=== PATIENT | male | born 1965 | race Caucasian/White ===

== ENCOUNTER 2018-11-22 14:36 | Inpatient (IN) ==
[2018-11-22 15:16] LABS: Basophils # 0.1 10*3/uL (0.0-0.2); Basophils % 0.7 % (0.0-0.8); Eosinophils # 0.4 10*3/uL (0.0-0.87); Eosinophils % 3.3 % (0.00-10.9); Hematocrit 45.4 VOL% (42.0-52.0); Hemoglobin 14.8 GM/DL (14.0-18.0); Immature Granulocytes % 0.4 %; Immature Granulocytes Absolute 0.05 #; Lymphocytes # 3.8 10*3/uL (1.4-4.0); Lymphocytes % 30.2 % (21.2-54.2); Mean Corpuscular HGB Conc 32.6 GM/DL (32-36); Mean Corpuscular Volume 93.4 FL (87-102); Mean Platelet Volume 11.6 FL (9.6-12.0); Monocytes % 10.4 % (1.7-12.7); Platelet Count 208 T/CUMM (130-400); Red Blood Count 4.86 MC/CUMM (3.8-5.5); Red Cell Distribution Width 12.9 % (9.3-17.3); White Blood Count 12.5 T/CUMM (4-12)
[2018-11-22 15:41] LABS: Albumin 3.6 G/DL (3.4-5.0); Bilirubin,Total 0.6 MG/DL (0.2-1.0); Calcium 8.9 MG/DL (8.5-10.1); Osmolality,Calculated 281.3 MOS/KG (273-304); Total Protein 6.6 G/DL (6.4-8.3)
[2018-11-22] MEDS ORDERED: ONDANSETRON 4 MG/2 ML VIAL IV STA (16:17)
[2018-11-22] MEDS ORDERED: ASPIRIN CHEW 81 MG TABLET PO STA (16:17)
[2018-11-22] MEDS ORDERED: NITROGLYCERIN 2% OINT 1 INCH/GM PACK TOP STA (16:17)
[2018-11-22] MEDS ORDERED: ENOXAPARIN 80 MG/0.8 ML SYRINGE SUBCUT STA (16:17)
[2018-11-22] MEDS ORDERED: MORPHINE 4 MG/1 ML VIAL IV STA (16:17)
[2018-11-22] MEDS ORDERED: BISACODYL 5 MG TABLET PO PRN (16:54)
[2018-11-22] MEDS ORDERED: MAGNESIUM SULF RIDER 4 GM in PREMIX 1 EACH IV PRN (16:54)
[2018-11-22] MEDS ORDERED: MAGNESIUM SULF RIDER 2 GM in PREMIX 1 EACH IV PRN (16:54)
[2018-11-22] MEDS ORDERED: ZALEPLON 5 MG CAPSULE PO PRN (16:54)
[2018-11-22] MEDS ORDERED: diphenhydrAMINE CAP 25 MG CAPSULE PO PRN (16:54)
[2018-11-22] MEDS ORDERED: DOCUSATE SODIUM 100 MG CAPSULE PO PRN (16:54)
[2018-11-22] MEDS ORDERED: POTASSIUM CHLORIDE 20 MEQ TABLET PO PRN (16:54)
[2018-11-22] MEDS ORDERED: NICOTINE 21 MG/24 HR PATCH TRANSDERM PRN (16:54)
[2018-11-22] MEDS ORDERED: MORPHINE 4 MG/1 ML VIAL IV PRN (16:54)
[2018-11-22] MEDS ORDERED: ONDANSETRON 4 MG/2 ML VIAL IV PRN (16:54)
[2018-11-22] MEDS ORDERED: guaiFENesin/DM ER 600-30 MG TABLET PO PRN (16:54)
[2018-11-22] MEDS ORDERED: ACETAMINOPHEN 325 MG TABLET PO PRN (16:54)
[2018-11-22] MEDS ORDERED: LISINOPRIL 10 MG TABLET ONE (18:26)
[2018-11-22] MEDS: KETOROLAC 30 MG/1 ML VIAL IV SCH (18:33)
[2018-11-22] MEDS: PANTOPRAZOLE 40 MG TABLET PO SCH (18:33)
[2018-11-22] MEDS: LISINOPRIL 5 MG TABLET PO SCH (18:33)
[2018-11-22 20:04] LABS: CKMB % 8.3 %
[2018-11-22 20:10] LABS: Troponin I 14.1 NG/ML (0.00-0.045)
[2018-11-22 22:12] LABS: CKMB % 8.1 %
[2018-11-22] MEDS: CARVEDILOL 3.125 MG TABLET PO SCH (22:14)
[2018-11-22] MEDS: GABAPENTIN 100 MG CAPSULE PO SCH (22:14)
[2018-11-22] MEDS: ROSUVASTATIN 20 MG TABLET PO SCH (22:14)
[2018-11-22 22:15] LABS: Troponin I 14.2 NG/ML (0.00-0.045)
[2018-11-22] MEDS: NITROGLYCERIN 2% OINT 1 INCH/GM PACK TOP SCH (22:15)
[2018-11-23] MEDS: KETOROLAC 30 MG/1 ML VIAL IV SCH (00:57)
[2018-11-23 05:26] LABS: Basophils # 0.1 10*3/uL (0.0-0.2); Basophils % 0.7 % (0.0-0.8); Eosinophils # 0.4 10*3/uL (0.0-0.87); Eosinophils % 3.3 % (0.00-10.9); Hematocrit 41.6 VOL% (42.0-52.0); Hemoglobin 13.8 GM/DL (14.0-18.0); INR 0.9; Immature Granulocytes % 0.4 %; Immature Granulocytes Absolute 0.05 #; Lymphocytes # 3.3 10*3/uL (1.4-4.0); Lymphocytes % 29.1 % (21.2-54.2); Mean Corpuscular HGB Conc 33.2 GM/DL (32-36); Mean Corpuscular Volume 93.5 FL (87-102); Mean Platelet Volume 12.3 FL (9.6-12.0); Neutrophils % 54.5 % (38.7-73.9); PT Patient Result 10.1 SECS; Platelet Count 179 T/CUMM (130-400); Red Blood Count 4.45 MC/CUMM (3.8-5.5); Red Cell Distribution Width 12.9 % (9.3-17.3); White Blood Count 11.2 T/CUMM (4-12)
[2018-11-23] MEDS: NITROGLYCERIN 2% OINT 1 INCH/GM PACK TOP SCH ×4 (05:40→22:54)
[2018-11-23 06:03] LABS: Calcium 8.7 MG/DL (8.5-10.1); Osmolality,Calculated 286.1 MOS/KG (273-304); Risk Ratio 5.48; VLDL CHOLESTEROL 22.6 MG/DL
[2018-11-23] MEDS: ENOXAPARIN 80 MG/0.8 ML SYRINGE SUBCUT SCH ×2 (06:05→16:14)
[2018-11-23] MEDS: SODIUM CHLORIDE 0.9% 1,000 ML IV SCH ×2 (08:45→18:12)
[2018-11-23] MEDS ORDERED: DIAZEPAM 5 MG TABLET ONE (08:47)
[2018-11-23] MEDS: GABAPENTIN 100 MG CAPSULE PO SCH ×3 (10:20→20:18)
[2018-11-23] MEDS ORDERED: LIDOCAINE 1% 20 ML VIAL ONE (11:56)
[2018-11-23] MEDS: CARVEDILOL 3.125 MG TABLET PO SCH ×2 (11:58→20:18)
[2018-11-23] MEDS: ASPIRIN EC 81 MG TABLET PO SCH (11:58)
[2018-11-23] MEDS: LISINOPRIL 5 MG TABLET PO SCH (11:58)
[2018-11-23] MEDS: PANTOPRAZOLE 40 MG TABLET PO SCH (11:59)
[2018-11-23] MEDS ORDERED: diphenhydrAMINE CAP 25 MG CAPSULE PO ONE (12:00)
[2018-11-23] MEDS ORDERED: DIAZEPAM 5 MG TABLET PO ONE (12:00)
[2018-11-23] MEDS ORDERED: NITROGLYCERIN DRIP 50 MG/250 ML BOTTLE IV ONE (12:56)
[2018-11-23] MEDS ORDERED: VERAPAMIL 5 MG/2 ML VIAL ONE (12:56)
[2018-11-23] MEDS ORDERED: fentaNYL 100 MCG/2 ML VIAL ONE (13:03)
[2018-11-23] MEDS ORDERED: MIDAZOLAM 2 MG/2 ML VIAL ONE ×2 (13:03→13:34)
[2018-11-23] MEDS ORDERED: KETOROLAC 30 MG/1 ML VIAL IV ONE (15:02)
[2018-11-23] MEDS: ROSUVASTATIN 20 MG TABLET PO SCH (20:18)
[2018-11-24] MEDS: NITROGLYCERIN 2% OINT 1 INCH/GM PACK TOP SCH ×4 (03:59→21:10)
[2018-11-24] MEDS: ENOXAPARIN 80 MG/0.8 ML SYRINGE SUBCUT SCH (03:59)
[2018-11-24] MEDS: SODIUM CHLORIDE 0.9% 1,000 ML IV SCH ×2 (03:59→18:50)
[2018-11-24 05:39] LABS: Calcium 8.2 MG/DL (8.5-10.1)
[2018-11-24 05:46] LABS: Basophils # 0.1 10*3/uL (0.0-0.2); Basophils % 0.6 % (0.0-0.8); Eosinophils # 0.3 10*3/uL (0.0-0.87); Eosinophils % 3.1 % (0.00-10.9); Hematocrit 37.3 VOL% (42.0-52.0); Hemoglobin 12.3 GM/DL (14.0-18.0); Immature Granulocytes % 0.4 %; Immature Granulocytes Absolute 0.04 #; Lymphocytes # 2.6 10*3/uL (1.4-4.0); Lymphocytes % 27.9 % (21.2-54.2); Mean Corpuscular Volume 94.9 FL (87-102); Mean Platelet Volume 12.5 FL (9.6-12.0); Monocytes % 9.9 % (1.7-12.7); Neutrophils % 58.1 % (38.7-73.9); Platelet Count 164 T/CUMM (130-400); Red Blood Count 3.93 MC/CUMM (3.8-5.5); Red Cell Distribution Width 12.6 % (9.3-17.3); White Blood Count 9.4 T/CUMM (4-12)
[2018-11-24] MEDS ORDERED: GLUCAGON 1 MG VIAL IM PRN (06:19)
[2018-11-24] MEDS ORDERED: CEFUROXIME INJ 1,500 MG in SYRINGE 1 EACH IV ONE (06:19)
[2018-11-24] MEDS ORDERED: DEXTROSE 50% 25 GM/50 ML SYRINGE IV PRN (06:19)
[2018-11-24 06:42] LABS: CKMB % 0.9 %
[2018-11-24 06:46] LABS: Troponin I 10.5 NG/ML (0.00-0.045)
[2018-11-24] MEDS: PANTOPRAZOLE 40 MG TABLET PO SCH (09:07)
[2018-11-24] MEDS: CARVEDILOL 3.125 MG TABLET PO SCH ×2 (09:08→21:10)
[2018-11-24] MEDS: GABAPENTIN 100 MG CAPSULE PO SCH ×3 (09:09→21:10)
[2018-11-24] MEDS: LISINOPRIL 5 MG TABLET PO SCH (09:09)
[2018-11-24] MEDS: ASPIRIN EC 81 MG TABLET PO SCH (09:09)
[2018-11-24] MEDS: CHLORHEXIDINE 0.12% ORAL RINSE 60 ML BOTTLE SWISH/SPIT SCH ×2 (09:12→21:10)
[2018-11-24] MEDS ORDERED: HYDROCORTISONE 2.5% CREAM 30 GM TUBE TOP PRN (09:59)
[2018-11-24 12:13] LABS: ABG Base Excess 1.3 MMOL/L (-2.5-2.5); ABG HCO3 25.5 MMOL/L (20-26); ABG Oxygen Saturation 96.5 % (95-100); ABG PCO2 37.4 MM HG (35-48); ABG PH 7.437 (7.35-7.45); ABG PO2 81.7 MM HG (80-95)
[2018-11-24] MEDS: CLORAZEPATE 3.75 MG TABLET PO PRN ×2 (13:10→19:45)
[2018-11-24] MEDS: CHLORHEXIDINE 4% SOLN 118 ML BOTTLE TOP SCH ×2 (17:34→21:10)
[2018-11-24] MEDS: ROSUVASTATIN 20 MG TABLET PO SCH (21:10)
[2018-11-25] MEDS: NITROGLYCERIN 2% OINT 1 INCH/GM PACK TOP SCH ×2 (04:27→10:14)
[2018-11-25] MEDS ORDERED: PAPAVERINE 60 MG/2 ML VIAL ONE (04:47)
[2018-11-25] MEDS ORDERED: VANCOMYCIN 1,000 MG VIAL ONE (04:47)
[2018-11-25] MEDS: CHLORHEXIDINE 4% SOLN 118 ML BOTTLE TOP SCH (04:53)
[2018-11-25] MEDS ORDERED: DIAZEPAM 5 MG TABLET PO ONE (05:00)
[2018-11-25] MEDS ORDERED: CEFUROXIME 1,500 MG VIAL ONE (05:28)
[2018-11-25] MEDS: SODIUM CHLORIDE 0.9% 1,000 ML IV SCH ×3 (05:30→10:14)
[2018-11-25] MEDS: PANTOPRAZOLE 40 MG TABLET PO SCH ×2 (05:54→08:05)
[2018-11-25] MEDS: LISINOPRIL 5 MG TABLET PO SCH ×2 (05:54→08:05)
[2018-11-25] MEDS: CARVEDILOL 3.125 MG TABLET PO SCH ×2 (05:55→08:05)
[2018-11-25] MEDS ORDERED: SUFentanil 250 MCG/5 ML AMP ONE (05:57)
[2018-11-25] MEDS ORDERED: MIDAZOLAM 10 MG/2 ML VIAL ONE (05:57)
[2018-11-25 05:59] LABS: Basophils # 0.1 10*3/uL (0.0-0.2); Basophils % 0.7 % (0.0-0.8); Eosinophils # 0.5 10*3/uL (0.0-0.87); Eosinophils % 4.1 % (0.00-10.9); Hematocrit 40.1 VOL% (42.0-52.0); Hemoglobin 13.5 GM/DL (14.0-18.0); Immature Granulocytes % 0.6 %; Immature Granulocytes Absolute 0.07 #; Lymphocytes # 2.8 10*3/uL (1.4-4.0); Lymphocytes % 25.5 % (21.2-54.2); Mean Corpuscular HGB Conc 33.7 GM/DL (32-36); Mean Platelet Volume 12.7 FL (9.6-12.0); Monocytes % 10.2 % (1.7-12.7); Neutrophils % 58.9 % (38.7-73.9); Platelet Count 189 T/CUMM (130-400); Red Blood Count 4.31 MC/CUMM (3.8-5.5); Red Cell Distribution Width 12.5 % (9.3-17.3)
[2018-11-25] MEDS ORDERED: FAMOTIDINE 20 MG TABLET PO ONE (06:00)
[2018-11-25 06:15] LABS: Calcium 9.2 MG/DL (8.5-10.1); Osmolality,Calculated 283.1 MOS/KG (273-304)
[2018-11-25] MEDS ORDERED: ALBUMIN 5% 12.5 GM/250 ML VIAL IV ONE ×3 (07:03→15:19)
[2018-11-25] MEDS ORDERED: PHENYLEPHRINE DRIP 40 MG/250 ML PREMIX IV ONE (07:04)
[2018-11-25] MEDS ORDERED: POTASSIUM CHLORIDE RIDER 100 ML IV ONE (07:06)
[2018-11-25 07:46] LABS: ABG Base Excess 1.4 MMOL/L (-2.5-2.5); ABG HCO3 25.7 MMOL/L (20-26); ABG Oxygen Saturation 99.9 % (95-100); ABG PCO2 34.2 MM HG (35-48); ABG PH 7.466 (7.35-7.45); ABG TCO2 21.8 MMOL/L (23-27); Glucose Heart Surgery 106 MG/DL (74-106); Hematocrit Heart Surgery 36.5 PERCENT (42-52); Hemoglobin Heart Surgery 11.9 G/DL (14.0-18.0); Ionized Calcium Arterial 1.13 MMOL/L (1.21-1.46); PCO2 Patient Temp Arterial 34.2 MMHG; PH Patient Temp Arterial 7.466; Patient Temperature 37 CELCIUS; Potassium Heart/CVR 3.4 MMOL/L (3.5-5.1); Sodium Heart/CVR 140 MMOL/L (135-145)
[2018-11-25] MEDS: CHLORHEXIDINE 0.12% ORAL RINSE 60 ML BOTTLE SWISH/SPIT SCH (08:05)
[2018-11-25] MEDS: GABAPENTIN 100 MG CAPSULE PO SCH (08:05)
[2018-11-25] MEDS: ASPIRIN EC 81 MG TABLET PO SCH (08:05)
[2018-11-25 08:09] LABS: Apearance,Urine CLEAR (Clear); Bilirubin,Urine Negative (Negative); Blood, Urine Moderate mg/dL (Negative); Glucose,Urine (UA) Negative (Negative); Ketones,Urine Negative (Negative); Mucus,Urine Occasional /LPF (Occasional); Nitrite,Urine Negative (Negative); Protein,Urine Negative; RBC,Urine 1 /HPF (0-4); Urine Color Yellow (Yellow); Urine Specific Gravity 1.018 (1.001-1.035); Urine Urobilinogen < 2.0 EU/DL (0.2-1.0); WBC,Urine 1 /HPF (0-6)
[2018-11-25 09:20] LABS: Hemoglobin Heart Surgery 9.1 G/DL (14.0-18.0); PCO2 Patient Temp Venous 29.6 MM HG; PH Patient Temp Venous 7.534; Potassium Heart/CVR 4.7 MMOL/L (3.5-5.1); VBG Base Excess 1.8 MEQ/L (0-4); VBG Oxygen Saturation 87.9 %; VBG PCO2 33.7 MMHG (41-51); VBG PH 7.488; VBG PO2 54.3 MMHG (17-40)
[2018-11-25] MEDS ORDERED: VECURONIUM 10 MG VIAL IV ONE (09:24)
[2018-11-25] MEDS ORDERED: MINERAL OIL/PETROLATUM OPH OINT 3.5 GM TUBE ONE (09:24)
[2018-11-25] MEDS ORDERED: EPINEPHrine 1 MG/ML VIAL ONE (09:24)
[2018-11-25] MEDS ORDERED: PHENYLEPHRINE 10 MG/1 ML VIAL IV ONE (09:24)
[2018-11-25] MEDS ORDERED: ETOMIDATE 40 MG/20 ML VIAL IV ONE (09:24)
[2018-11-25] MEDS ORDERED: CALCIUM CHLORIDE 1,000 MG/10 ML VIAL IV ONE (09:24)
[2018-11-25] MEDS ORDERED: ePHEDrine 50 MG/ML AMP ONE (09:24)
[2018-11-25] MEDS ORDERED: LACTATED RINGERS 1,000 ML IV ONE (09:25)
[2018-11-25] MEDS ORDERED: SODIUM CHLORIDE 0.9% 1,000 ML IV ONE (09:25)
[2018-11-25] MEDS ORDERED: SODIUM CHLORIDE 0.9% 250 ML IV ONE (09:25)
[2018-11-25] MEDS ORDERED: SODIUM CHLORIDE 0.9% 100 ML IV ONE (09:25)
[2018-11-25] MEDS ORDERED: NITROGLYCERIN DRIP 50 MG/250 ML BOTTLE IV ONE (09:25)
[2018-11-25 09:50] LABS: Hematocrit Heart Surgery 28.4 PERCENT (42-52); Hemoglobin Heart Surgery 9.2 G/DL (14.0-18.0); PCO2 Patient Temp Venous 27.6 MM HG; PH Patient Temp Venous 7.539; PO2 Patient Temp Venous 37.4 MM HG; Potassium Heart/CVR 4.4 MMOL/L (3.5-5.1); VBG Base Excess 1.7 MEQ/L (0-4); VBG HCO3 25.7 MEQ/L (24-28); VBG Oxygen Saturation 87.5 %; VBG PCO2 33.5 MMHG (41-51); VBG PH 7.479; VBG PO2 49.2 MMHG (17-40)
[2018-11-25] MEDS ORDERED: HEPARIN/NACL 0.9% 2 UNITS/ML 500 ML IV ONE (09:51)
[2018-11-25] MEDS ORDERED: DEXTROSE 5% KCL 20 MEQ 20 MEQ/1,000 ML BAG IV ONE (10:34)
[2018-11-25] MEDS ORDERED: MANNITOL 100 GM/500 ML BAG IV ONE (10:34)
[2018-11-25] MEDS ORDERED: SODIUM BICARBONATE 50 MEQ/50 ML VIAL IV ONE (10:35)
[2018-11-25] MEDS ORDERED: MAGNESIUM SULFATE 5 GM/10 ML VIAL IV ONE (10:35)
[2018-11-25] MEDS ORDERED: FUROSEMIDE 20 MG/2 ML VIAL ONE (10:35)
[2018-11-25] MEDS ORDERED: methylPREDNISolone SOD SUC 1,000 MG/8 ML VIAL ONE (10:35)
[2018-11-25] MEDS ORDERED: PROTAMINE SULFATE 250 MG/25 ML VIAL IV ONE (10:35)
[2018-11-25] MEDS ORDERED: ALBUMIN 25% 25 GM/100 ML VIAL IV ONE (10:35)
[2018-11-25] MEDS ORDERED: HEPARIN 10,000 UNIT/10 ML VIAL ONE (10:35)
[2018-11-25] MEDS ORDERED: PROTAMINE SULFATE 50 MG/5 ML VIAL IV ONE ×3 (10:36→11:47)
[2018-11-25 10:37] LABS: ABG Base Excess -0.1 MMOL/L (-2.5-2.5); ABG HCO3 24.4 MMOL/L (20-26); ABG Oxygen Saturation 99.9 % (95-100); ABG PCO2 36.6 MM HG (35-48); ABG PH 7.425 (7.35-7.45); ABG TCO2 21.7 MMOL/L (23-27); Glucose Heart Surgery 211 MG/DL (74-106); Hematocrit Heart Surgery 32.2 PERCENT (42-52); Hemoglobin Heart Surgery 10.4 G/DL (14.0-18.0); Ionized Calcium Arterial 1.27 MMOL/L (1.21-1.46); PCO2 Patient Temp Arterial 36.6 MMHG; PH Patient Temp Arterial 7.425; Patient Temperature 37 CELCIUS; Potassium Heart/CVR 3.7 MMOL/L (3.5-5.1); Sodium Heart/CVR 134 MMOL/L (135-145)
[2018-11-25] MEDS ORDERED: MORPHINE 10 MG/1 ML VIAL IV PRN (11:36)
[2018-11-25] MEDS ORDERED: DEXTROSE 50% 25 GM/50 ML SYRINGE IV PRN ×2 (11:36)
[2018-11-25] MEDS ORDERED: NITROPRUSSIDE 100 MG in DEXTROSE 5% 250 ML IV PRN (11:36)
[2018-11-25] MEDS ORDERED: MAGNESIUM SULF RIDER 2 GM in PREMIX 1 EACH IV PRN (11:36)
[2018-11-25] MEDS ORDERED: LACTATED RINGERS 250 ML IV PRN (11:36)
[2018-11-25] MEDS ORDERED: MAGNESIUM SULF RIDER 4 GM in PREMIX 1 EACH IV PRN (11:36)
[2018-11-25] MEDS ORDERED: MIDAZOLAM 10 MG/2 ML VIAL IV PRN (11:36)
[2018-11-25] MEDS ORDERED: INSULIN REGULAR 100 UNIT/ML IV PRN (11:36)
[2018-11-25] MEDS ORDERED: CALCIUM CHLORIDE 1,000 MG/10 ML SYRINGE IV PRN (11:36)
[2018-11-25] MEDS ORDERED: POTASSIUM CHLORIDE RIDER 10 MEQ in PREMIX 1 EACH IV PRN (11:36)
[2018-11-25] MEDS ORDERED: ONDANSETRON 4 MG/2 ML VIAL IV PRN (11:36)
[2018-11-25] MEDS ORDERED: MIDAZOLAM 2 MG/2 ML VIAL IV PRN (11:36)
[2018-11-25] MEDS ORDERED: PHENYLEPHRINE DRIP 40 MG/250 ML PREMIX IV PRN (11:36)
[2018-11-25] MEDS ORDERED: VECURONIUM 10 MG VIAL IV PRN ×2 (11:36)
[2018-11-25] MEDS ORDERED: ACETAMINOPHEN 650 MG SUPP RECTAL PRN (11:36)
[2018-11-25] MEDS ORDERED: INSULIN REGULAR 100 UNIT/ML IV ONE (11:36)
[2018-11-25] MEDS ORDERED: SODIUM CHLORIDE 0.45% 1,000 ML IV SCH ×2 (11:36)
[2018-11-25] MEDS ORDERED: INSULIN REGULAR DRIP 100 ML IV SCH (11:36)
[2018-11-25] MEDS ORDERED: MORPHINE 4 MG/1 ML VIAL IV PRN (11:36)
[2018-11-25 11:48] LABS: ABG Base Excess 1.6 MMOL/L (-2.5-2.5); ABG HCO3 25.8 MMOL/L (20-26); ABG Oxygen Saturation 96.5 % (95-100); ABG PCO2 37.8 MM HG (35-48); ABG PO2 82.2 MM HG (80-95); ABG TCO2 22.5 MMOL/L (23-27); Glucose Heart Surgery 200 MG/DL (74-106); Hemoglobin Heart Surgery 12.3 G/DL (14.0-18.0); Potassium Heart/CVR 3.1 MMOL/L (3.5-5.1)
[2018-11-25 11:52] LABS: Basophils % 0.3 % (0.0-0.8); Eosinophils # 0.2 10*3/uL (0.0-0.87); Eosinophils % 1.2 % (0.00-10.9); Hematocrit 35.7 VOL% (42.0-52.0); Immature Granulocytes % 1.5 %; Lymphocytes # 0.9 10*3/uL (1.4-4.0); Lymphocytes % 6.8 % (21.2-54.2); Mean Corpuscular HGB Conc 33.6 GM/DL (32-36); Mean Corpuscular Volume 92.7 FL (87-102); Mean Platelet Volume 12.3 FL (9.6-12.0); Neutrophils % 85.2 % (38.7-73.9); Platelet Count 147 T/CUMM (130-400); Red Blood Count 3.85 MC/CUMM (3.8-5.5); Red Cell Distribution Width 12.4 % (9.3-17.3); White Blood Count 13.8 T/CUMM (4-12)
[2018-11-25] MEDS: POTASSIUM CHLORIDE RIDER 20 MEQ in PREMIX 1 EACH IV PRN ×3 (11:58→14:28)
[2018-11-25 11:59] LABS: PT Patient Result 10.7 SECS
[2018-11-25] MEDS: LACTATED RINGERS 1,000 ML IV PRN ×3 (12:05→16:41)
[2018-11-25] MEDS: KETOROLAC 30 MG/1 ML VIAL IV SCH ×3 (12:11→23:52)
[2018-11-25] MEDS: ALBUMIN 5% 12.5 GM in PREMIX 1 EACH IV PRN ×3 (12:16→15:18)
[2018-11-25 12:28] LABS: Albumin 2.9 G/DL (3.4-5.0); Bilirubin,Total 1.4 MG/DL (0.2-1.0); CKMB % 2.8 %; Calcium 8.9 MG/DL (8.5-10.1); Osmolality,Calculated 288.1 MOS/KG (273-304); Total Protein 5.9 G/DL (6.4-8.3)
[2018-11-25 12:29] LABS: Troponin I 12.9 NG/ML (0.00-0.045)
[2018-11-25 12:58] LABS: ABG Base Excess 1.5 MMOL/L (-2.5-2.5); ABG HCO3 25.7 MMOL/L (20-26); ABG Oxygen Saturation 97.4 % (95-100); ABG PCO2 38.9 MM HG (35-48); ABG PH 7.429 (7.35-7.45); ABG PO2 96.6 MM HG (80-95); ABG TCO2 22.8 MMOL/L (23-27); Glucose Heart Surgery 198 MG/DL (74-106); Hematocrit Heart Surgery 36.5 PERCENT (42-52); Hemoglobin Heart Surgery 11.8 G/DL (14.0-18.0); Potassium Heart/CVR 4.1 MMOL/L (3.5-5.1)
[2018-11-25 14:13] LABS: ABG Base Excess 1.3 MMOL/L (-2.5-2.5); ABG HCO3 25.5 MMOL/L (20-26); ABG Oxygen Saturation 95.6 % (95-100); ABG PCO2 40.6 MM HG (35-48); ABG PH 7.413 (7.35-7.45); ABG PO2 78.4 MM HG (80-95); ABG TCO2 23.2 MMOL/L (23-27); Glucose Heart Surgery 186 MG/DL (74-106); Hematocrit Heart Surgery 35.1 PERCENT (42-52); Hemoglobin Heart Surgery 11.4 G/DL (14.0-18.0); Potassium Heart/CVR 3.8 MMOL/L (3.5-5.1)
[2018-11-25] MEDS ORDERED: DEXMEDETOMIDINE 200 MCG in SODIUM CHLORIDE 0.9% 48 ML IV PRN (16:02)
[2018-11-25 17:26] LABS: ABG Base Excess 0.6 MMOL/L (-2.5-2.5); ABG Oxygen Saturation 99.5 % (95-100); ABG PCO2 28.3 MM HG (35-48); ABG PH 7.513 (7.35-7.45); ABG TCO2 20.3 MMOL/L (23-27); Glucose Heart Surgery 153 MG/DL (74-106); Hematocrit Heart Surgery 33.6 PERCENT (42-52); Hemoglobin Heart Surgery 10.9 G/DL (14.0-18.0); Potassium Heart/CVR 4.2 MMOL/L (3.5-5.1)
[2018-11-25] MEDS: CEFUROXIME INJ 1,500 MG in SYRINGE 1 EACH IV SCH (19:19)
[2018-11-25] MEDS ORDERED: HYDROmorphone 2 MG/1 ML VIAL IV PRN (20:14)
[2018-11-25] MEDS ORDERED: HYDROmorphone 2 MG/1 ML VIAL ONE (20:14)
[2018-11-25] MEDS ORDERED: CLORAZEPATE 3.75 MG TABLET PO PRN (20:14)
[2018-11-25] MEDS: HYDROmorphone 2 MG/1 ML VIAL IV PRN ×2 (20:15→23:56)
[2018-11-25] MEDS ORDERED: CHLORHEXIDINE 0.12% ORAL RINSE 60 ML BOTTLE SWISH/SPIT SCH (21:00)
[2018-11-25] MEDS: CLORAZEPATE 3.75 MG TABLET PO PRN (21:00)
[2018-11-25] MEDS ORDERED: FUROSEMIDE 40 MG/4 ML VIAL IV ONE (23:29)
[2018-11-26 00:18] LABS: CKMB % 3.4 %
[2018-11-26 00:20] LABS: Troponin I 7.15 NG/ML (0.00-0.045)
[2018-11-26] MEDS: POTASSIUM CHLORIDE RIDER 20 MEQ in PREMIX 1 EACH IV PRN ×2 (00:41→04:46)
[2018-11-26 04:12] LABS: ABG Base Excess 1.2 MMOL/L (-2.5-2.5); ABG HCO3 24.9 MMOL/L (20-26); ABG Oxygen Saturation 93.5 % (95-100); ABG PH 7.457 (7.35-7.45); ABG PO2 67.7 MM HG (80-95); Glucose Heart Surgery 111 MG/DL (74-106); Hemoglobin Heart Surgery 10.7 G/DL (14.0-18.0); Potassium Heart/CVR 4.2 MMOL/L (3.5-5.1)
[2018-11-26 04:29] LABS: Basophils % 0.1 % (0.0-0.8); Hematocrit 30.7 VOL% (42.0-52.0); Hemoglobin 9.9 GM/DL (14.0-18.0); Immature Granulocytes % 0.8 %; Immature Granulocytes Absolute 0.13 #; Lymphocytes # 1.1 10*3/uL (1.4-4.0); Lymphocytes % 6.2 % (21.2-54.2); Mean Corpuscular HGB Conc 32.2 GM/DL (32-36); Mean Platelet Volume 12.8 FL (9.6-12.0); Neutrophils % 87.9 % (38.7-73.9); Platelet Count 149 T/CUMM (130-400); Red Blood Count 3.23 MC/CUMM (3.8-5.5); Red Cell Distribution Width 12.6 % (9.3-17.3)
[2018-11-26] MEDS ORDERED: AMIODARONE INJ 150 MG in DEXTROSE 5% 100 ML IV ONE (04:56)
[2018-11-26 04:58] LABS: Albumin 3.1 G/DL (3.4-5.0); Bilirubin,Direct 0.15 MG/DL (0.0-0.20); Bilirubin,Total 0.6 MG/DL (0.2-1.0); Calcium 8.6 MG/DL (8.5-10.1); Osmolality,Calculated 284.3 MOS/KG (273-304); Total Protein 5.7 G/DL (6.4-8.3)
[2018-11-26 04:59] LABS: CKMB % 3.7 %; Troponin I 6.23 NG/ML (0.00-0.045)
[2018-11-26] MEDS ORDERED: AMIODARONE INJ 450 MG in DEXTROSE 5% 241 ML IV SCH (05:00)
[2018-11-26] MEDS ORDERED: AMIODARONE 150 MG/3 ML VIAL ONE (05:02)
[2018-11-26] MEDS: KETOROLAC 30 MG/1 ML VIAL IV SCH ×4 (05:25→22:26)
[2018-11-26] MEDS: HYDROmorphone 2 MG/1 ML VIAL IV PRN ×3 (05:31→13:45)
[2018-11-26] MEDS: CEFUROXIME INJ 1,500 MG in SYRINGE 1 EACH IV SCH (06:44)
[2018-11-26] MEDS ORDERED: INSULIN REGULAR 100 UNIT/ML SUBCUT SCH (08:00)
[2018-11-26] MEDS ORDERED: ACETAMINOPHEN 325 MG TABLET PO PRN (08:49)
[2018-11-26] MEDS ORDERED: DEXTROSE 50% 25 GM/50 ML VIAL IV PRN (08:49)
[2018-11-26] MEDS ORDERED: MAGNESIUM HYDROXIDE SUSP 30 ML UDCUP PO PRN (08:49)
[2018-11-26] MEDS ORDERED: MAGNESIUM SULF RIDER 2 GM in PREMIX 1 EACH IV PRN (08:49)
[2018-11-26] MEDS ORDERED: ALUMINUM/MAGNES/SIMETH MAX STR 30 ML UDCUP PO PRN (08:49)
[2018-11-26] MEDS ORDERED: DEXTROSE 50% 25 GM/50 ML SYRINGE IV PRN (08:49)
[2018-11-26] MEDS ORDERED: MAGNESIUM SULF RIDER 4 GM in PREMIX 1 EACH IV PRN (08:49)
[2018-11-26] MEDS ORDERED: ONDANSETRON 4 MG/2 ML VIAL IV PRN (08:49)
[2018-11-26] MEDS ORDERED: GLUCAGON 1 MG VIAL IM PRN ×2 (08:49)
[2018-11-26] MEDS ORDERED: ZALEPLON 5 MG CAPSULE PO PRN (08:49)
[2018-11-26] MEDS: FERROUS SULFATE 325 MG TABLET PO SCH (09:00)
[2018-11-26] MEDS: CARVEDILOL 3.125 MG TABLET PO SCH ×2 (09:12→20:39)
[2018-11-26] MEDS: DOCUSATE SODIUM 100 MG CAPSULE PO SCH (09:12)
[2018-11-26] MEDS: PANTOPRAZOLE 40 MG TABLET PO SCH (09:12)
[2018-11-26] MEDS: SODIUM CHLOR 0.45% KCL 20 MEQ 20 MEQ/1,000 ML BAG IV SCH (09:12)
[2018-11-26] MEDS: ASPIRIN EC 325 MG TABLET PO SCH (09:12)
[2018-11-26] MEDS: CHLORHEXIDINE 0.12% ORAL RINSE 60 ML BOTTLE SWISH/SPIT SCH ×2 (09:15→20:39)
[2018-11-26] MEDS ORDERED: ALBUMIN 5% 12.5 GM/250 ML VIAL IV ONE (12:13)
[2018-11-26] MEDS ORDERED: ALBUMIN 5% 12.5 GM in PREMIX 1 EACH IV ONE (12:15)
[2018-11-26] MEDS ORDERED: ALBUMIN 25% 12.5 GM in PREMIX 1 EACH IV ONE (12:18)
[2018-11-26] MEDS: ROSUVASTATIN 20 MG TABLET PO SCH (20:39)
[2018-11-27] MEDS: KETOROLAC 30 MG/1 ML VIAL IV SCH (04:24)
[2018-11-27 05:02] LABS: Basophils % 0.2 % (0.0-0.8); Hematocrit 28.6 VOL% (42.0-52.0); Hemoglobin 9.2 GM/DL (14.0-18.0); Immature Granulocytes % 0.8 %; Immature Granulocytes Absolute 0.13 #; Lymphocytes # 1.4 10*3/uL (1.4-4.0); Lymphocytes % 8.9 % (21.2-54.2); Mean Corpuscular HGB Conc 32.2 GM/DL (32-36); Mean Corpuscular Volume 97.3 FL (87-102); Mean Platelet Volume 13.4 FL (9.6-12.0); Monocytes % 8.5 % (1.7-12.7); Neutrophils % 81.6 % (38.7-73.9); Platelet Count 142 T/CUMM (130-400); Red Blood Count 2.94 MC/CUMM (3.8-5.5); Red Cell Distribution Width 12.9 % (9.3-17.3); White Blood Count 15.5 T/CUMM (4-12)
[2018-11-27 05:48] LABS: Bilirubin,Direct 0.12 MG/DL (0.0-0.20); Bilirubin,Indirect 0.4 MG/DL (0.0-1.0); Bilirubin,Total 0.5 MG/DL (0.2-1.0); CKMB % 2.3 %; Osmolality,Calculated 289.3 MOS/KG (273-304); Total Protein 5.6 G/DL (6.4-8.3)
[2018-11-27 05:51] LABS: Troponin I 6.21 NG/ML (0.00-0.045)
[2018-11-27] MEDS ORDERED: FUROSEMIDE 40 MG/4 ML VIAL IV ONE ×2 (06:00→08:05)
[2018-11-27] MEDS: oxyCODONE/ACETAMINOPHEN 5-325 MG TABLET PO PRN ×4 (07:51→20:47)
[2018-11-27] MEDS: FERROUS SULFATE 325 MG TABLET PO SCH (08:32)
[2018-11-27] MEDS: DOCUSATE SODIUM 100 MG CAPSULE PO SCH (08:32)
[2018-11-27] MEDS: CARVEDILOL 3.125 MG TABLET PO SCH (08:32)
[2018-11-27] MEDS: ASPIRIN EC 325 MG TABLET PO SCH (08:33)
[2018-11-27] MEDS: CHLORHEXIDINE 0.12% ORAL RINSE 60 ML BOTTLE SWISH/SPIT SCH ×2 (08:33→20:45)
[2018-11-27] MEDS: PANTOPRAZOLE 40 MG TABLET PO SCH (08:33)
[2018-11-27] MEDS: SODIUM CHLOR 0.45% KCL 20 MEQ 20 MEQ/1,000 ML BAG IV SCH (10:27)
[2018-11-27] MEDS: ROSUVASTATIN 20 MG TABLET PO SCH (20:48)
[2018-11-28 06:16] LABS: Basophils % 0.3 % (0.0-0.8); Eosinophils % 0.3 % (0.00-10.9); Hematocrit 30.6 VOL% (42.0-52.0); Hemoglobin 9.9 GM/DL (14.0-18.0); Immature Granulocytes % 0.7 %; Lymphocytes # 2.3 10*3/uL (1.4-4.0); Lymphocytes % 16.3 % (21.2-54.2); Mean Corpuscular HGB Conc 32.4 GM/DL (32-36); Mean Corpuscular Volume 95.9 FL (87-102); Mean Platelet Volume 13.6 FL (9.6-12.0); Monocytes % 12.8 % (1.7-12.7); Neutrophils % 69.6 % (38.7-73.9); Platelet Count 151 T/CUMM (130-400); Red Blood Count 3.19 MC/CUMM (3.8-5.5); Red Cell Distribution Width 12.7 % (9.3-17.3)
[2018-11-28] MEDS: oxyCODONE/ACETAMINOPHEN 5-325 MG TABLET PO PRN ×3 (06:18→20:29)
[2018-11-28 06:57] LABS: Alanine Aminotransferase 30 U/L (16-61); Albumin 2.9 G/DL (3.4-5.0); Alkaline Phosphatase 66 U/L (45-117); Aspartate Amino Transferase 27 U/L (0-37); Bilirubin,Direct < 0.100 MG/DL (0.0-0.20); Bilirubin,Indirect 0.9 MG/DL (0.0-1.0); Blood Urea Nitrogen 28 MG/DL (7-18); Calcium 8.4 MG/DL (8.5-10.1); Glucose 106 MG/DL (74-106); Osmolality,Calculated 284.4 MOS/KG (273-304); Total Protein 5.8 G/DL (6.4-8.3)
[2018-11-28] MEDS ORDERED: AMIODARONE INJ 150 MG in DEXTROSE 5% 100 ML IV ONE (07:03)
[2018-11-28] MEDS ORDERED: AMIODARONE INJ 450 MG in DEXTROSE 5% 241 ML IV SCH (07:30)
[2018-11-28] MEDS ORDERED: AMIODARONE 200 MG TABLET PO SCH (09:00)
[2018-11-28] MEDS: PANTOPRAZOLE 40 MG TABLET PO SCH (09:05)
[2018-11-28] MEDS: POTASSIUM CHLORIDE 20 MEQ TABLET PO PRN ×2 (09:05→12:01)
[2018-11-28] MEDS: DOCUSATE SODIUM 100 MG CAPSULE PO SCH (09:05)
[2018-11-28] MEDS: ASPIRIN EC 325 MG TABLET PO SCH (09:05)
[2018-11-28] MEDS: FERROUS SULFATE 325 MG TABLET PO SCH (09:06)
[2018-11-28] MEDS: CHLORHEXIDINE 0.12% ORAL RINSE 60 ML BOTTLE SWISH/SPIT SCH ×2 (09:07→20:30)
[2018-11-28] MEDS: AMIODARONE 200 MG TABLET PO SCH (20:29)
[2018-11-28] MEDS: ROSUVASTATIN 20 MG TABLET PO SCH (20:29)
[2018-11-29] MEDS ORDERED: LACTULOSE 20 GM/30 ML UDCUP PO PRN (07:24)
[2018-11-29] MEDS: ASPIRIN EC 325 MG TABLET PO SCH (09:30)
[2018-11-29] MEDS: PANTOPRAZOLE 40 MG TABLET PO SCH (09:30)
[2018-11-29] MEDS: CHLORHEXIDINE 0.12% ORAL RINSE 60 ML BOTTLE SWISH/SPIT SCH ×2 (09:30→21:30)
[2018-11-29] MEDS: FERROUS SULFATE 325 MG TABLET PO SCH (09:30)
[2018-11-29] MEDS: DOCUSATE SODIUM 100 MG CAPSULE PO SCH (09:30)
[2018-11-29] MEDS: AMIODARONE 200 MG TABLET PO SCH ×2 (09:30→21:29)
[2018-11-29] MEDS: oxyCODONE/ACETAMINOPHEN 5-325 MG TABLET PO PRN ×2 (09:39→18:57)
[2018-11-29] MEDS: ROSUVASTATIN 20 MG TABLET PO SCH (21:29)
[2018-11-29] MEDS: CLORAZEPATE 3.75 MG TABLET PO PRN (21:29)
[2018-11-30 06:19] LABS: Basophils # 0.1 10*3/uL (0.0-0.2); Basophils % 0.5 % (0.0-0.8); Eosinophils # 0.5 10*3/uL (0.0-0.87); Eosinophils % 3.6 % (0.00-10.9); Hematocrit 34.2 VOL% (42.0-52.0); Hemoglobin 11.5 GM/DL (14.0-18.0); Immature Granulocytes % 0.9 %; Immature Granulocytes Absolute 0.12 #; Lymphocytes # 2.3 10*3/uL (1.4-4.0); Lymphocytes % 17.6 % (21.2-54.2); Mean Corpuscular HGB Conc 33.6 GM/DL (32-36); Mean Corpuscular Volume 93.4 FL (87-102); Mean Platelet Volume 12.5 FL (9.6-12.0); Monocytes % 11.8 % (1.7-12.7); Neutrophils % 65.6 % (38.7-73.9); Platelet Count 245 T/CUMM (130-400); Red Blood Count 3.66 MC/CUMM (3.8-5.5); Red Cell Distribution Width 12.4 % (9.3-17.3); White Blood Count 12.8 T/CUMM (4-12)
[2018-11-30 06:43] LABS: Alanine Aminotransferase 60 U/L (16-61); Alkaline Phosphatase 74 U/L (45-117); Aspartate Amino Transferase 30 U/L (0-37); Bilirubin,Indirect 0.7 MG/DL (0.0-1.0); Blood Urea Nitrogen 19 MG/DL (7-18); Calcium 9.2 MG/DL (8.5-10.1); Glucose 92 MG/DL (74-106); Osmolality,Calculated 280.4 MOS/KG (273-304); Total Protein 6.5 G/DL (6.4-8.3)
[2018-11-30] MEDS: FERROUS SULFATE 325 MG TABLET PO SCH (08:51)
[2018-11-30] MEDS: ASPIRIN EC 325 MG TABLET PO SCH (08:51)
[2018-11-30] MEDS: PANTOPRAZOLE 40 MG TABLET PO SCH (08:51)
[2018-11-30] MEDS: AMIODARONE 200 MG TABLET PO SCH (08:51)
[2018-11-30] MEDS: DOCUSATE SODIUM 100 MG CAPSULE PO SCH (08:51)
[2018-11-30] MEDS: CHLORHEXIDINE 0.12% ORAL RINSE 60 ML BOTTLE SWISH/SPIT SCH (08:51)
[2018-11-30 10:32] VITALS: BP 134/75
== END 2018-11-30 12:15 | disposition home or self-care (01) | DRG 234 ==
LOC: N.ED 14:36 → N.EDINP 16:54 → N.TELEN 18:12 → N.CVR 11-25 07:11 → N.TELES 11-26 13:11
PROVIDERS: ADMIT Internal Medicine Cardiovascular Disease; ATTEND Internal Medicine Cardiovascular Disease
PROC: CLCCHCL (ICD-10-PCS; 2018-11-23 15:45)